=== PATIENT | male | born 1950 | race Caucasian/White ===

== ENCOUNTER 2017-01-11 15:44 | Emergency (ER) | payer MEDICARE ==
[~2017-01-11 15:44] MED LIST: ABREVA2 GM TP; ACCURETIC 20-121 TAB; ACETAMINOPHEN325 M3 PO; ACIDOPHILUS LA1 EAC1 PO; ACYCLOVIR400 MG PO; ADULT LOW DOSE81 M1 PO; ADVIL PM CAPLET1 TAB; ALPRAZOLAM0.5 M2 PO; AMLODIPINE BESYL5 MG PO; AMOXICILLIN500 M1 PO; AMOXICILLIN875 M1 PO; AMOXICILLIN875 MG PO; APRESOLINE25 MG/TAB PO; ASPIR 8181 M1 PO; ASPIR 8181 MG PO; ASPIRIN LOW STR81 MG PO; ASPIRIN325 MG; ATENOLOL25 MG; ATENOLOL50 MG; ATENOLOL50 MG PO; ATIVAN0.5 MG PO; ATORVASTATIN CA80 M1 PO; BABY ASPIRIN81 MG; BACTRIM DS TABL1 TAB PO; BACTROBAN NASAL1 G1; BENICAR HCT 40-1 T; BENICAR HCT 40-1 T PO; BENTYL20 MG PO; BETAPACE AF120 MG PO; BETAPACE AF80 M1 PO; BETAPACE120 MG PO; BETAPACE80 MG PO; CATAPRES0.1 M1 PO; CATAPRES0.1 MG PO; CENTRUM SILVER1 EAC7 PO; CLONIDINE HCL0.1 M2 PO; CLONIDINE HCL0.2 MG PO; CLOPIDOGREL75 M1 PO; COZAAR100 MG PO; CRESTOR; DEPAKOTE ER500 MG PO; FISH OIL; FLEXERIL10 MG PO; FLOMAX0.4 M1 PO; FUROSEMIDE40 MG; FUROSEMIDE40 MG PO; GLIPIZIDE10 M2 PO; GLUCOPHAGE500 M3 PO; HYDRALAZINE HCL25 MG PO; HYDROCODON-ACE1 EA16 PO; HYDROCODONE; IMDUR30 MG PO; KEFLEX500 MG PO; KLOR-CON M1010 MEQ; LAMICTAL25 M1 PO; LASIX40 MG PO; LEVAQUIN750 M1 PO; LIPITOR40 M1 PO; LIPITOR80 M1 PO; LOPRESSOR25 MG/TA6 PO; LORTAB 5-500 T1 EAC1 PO; LORTAB 7.5/5001 TAB PO; MEDROL4 M2 PO; MELOXICAM7.5 MG PO; METFORMIN HCL500 M2 PO; METHADONE PO; METOPROLOL SUC100 M1 PO; METOPROLOL SUCC50 M1 PO; METOPROLOL SUCC50 MG PO; METOPROLOL TART50 MG PO; MIRALAX17 G2 PO; MUCINEX600 M1 PO; MULTI VITAMIN; MULTIVITAMIN1 TAB PO; NEOSPORIN ANT14.2 GM TOP; NEXIUM 24HR20 M1 PO; NEXIUM40 M1 PO; NICOTINE PATCH1 EAC1 TD; NITROGLYCERIN0.4 M2 SL; NITROGLYCERIN0.4 MG SL; NITROSTAT0.4 MG SL; NORCO 10/325 TA1 TAB PO; NORCO 5-325 TA1 EACH PO; NORCO 5/325 TAB1 TAB; NORCO 5/325 TAB1 TAB PO; NORCO 5/3251 TAB PO; NORCO 7.5/325 T1 TAB PO; NORVASC10 M1 PO; NORVASC5 M1 PO; NORVASC5 M2 PO; ORPHENADRINE C100 M1 PO; PAROXETINE HCL20 M1 PO; PAROXETINE HCL20 M2 PO; PAROXETINE HCL20 MG PO; PAROXETINE HCL40 M1 PO; PAROXETINE HCL40 MG PO; PAXIL20 M1 PO; PEN-VEE K500 MG PO; PENICILLIN V P500 M1 PO; PEPCID20 MG PO; PERCOCET 5-3251 EACH PO; PERCOCET 5/3251 TAB PO; PERCOCET 7.5-31 EAC1 PO; PERCOCET 7.5/321 TA2 PO; PERIDEX480 ML MM; PLAVIX75 MG PO; POTASSIUM CHLO10 MEQ PO; PRADAXA150 MG PO; PRAVACHOL20 MG PO; PREDNISONE10 M1 PO; PREDNISONE20 M1 PO; PRILOSEC OTC20 M1 PO; PROAIR HFA8.5 GM IH; PROAIR HFA8.5 GM INH; PROSCAR5 M1 PO; PROTONIX40 M1 PO; PROTONIX40 M2 PO; PROTONIX40 MG PO; SAW PALMETTO CA1 CAP PO; SENOKOT-S TABL1 EACH PO; SENOKOT-S TABLE1 TAB PO; SORINE PO; SORINE120 MG PO; SORINE80 MG PO; SOTALOL HCL80 MG PO; SYMBICORT 80-41 PUFF INH; TOPROL XL100 M1 PO; TOPROL XL50 M1 PO; TOPROL XL50 MG PO; TRAMADOL HCL50 MG PO; TRAZODONE100 MG PO; TRAZODONE50 MG PO; TRICOR145 M1 PO; TYLENOL TA325 MG/TA1 PO; TYLENOL325 M1 PO; TYLENOL325 M2 PO; ULTRAM50 M1 PO; ULTRAM50 MG PO; UNISOM25 MG PO; VIAGRA50 MG; XARELTO20 MG PO; ZOCOR20 M1 PO; ZOFRAN ODT4 MG/UDTAB PO; [UNRECOGNIZED DRUG - OTHER] PO; [UNRECOGNIZED DRUG - OTHER] TP
[2017-01-11] MEDS ORDERED: ULTRAM50 M1 PO (16:42)
[2017-01-11] MEDS ORDERED: CYCLOBENZAPRINE10 M1 PO (16:43)
[2017-04-15] MEDS ORDERED: PENICILLIN V P500 M1 PO (10:57)
[2017-04-15] MEDS ORDERED: NORCO 5/3251 TAB PO ×2 (10:57→11:03)
[2017-05-24] MEDS ORDERED: NORCO 5-325 TA1 EACH PO (15:01)
[2017-05-31] MEDS ORDERED: HYDROCODON-ACE1 EA16 PO (12:47)
== END 2017-01-11 16:48 ==
LOC: EDMED 15:44
DX: M54.5 Low back pain (principal); G89.29 Other chronic pain; I11.9 Hypertensive heart disease without heart failure; Z79.899 Other long term (current) drug therapy; Z79.82 Long term (current) use of aspirin

== ENCOUNTER 2017-02-04 12:05 | Emergency (ER) | payer MEDICARE ==
[~2017-02-04 12:05] MED LIST changes: +CYCLOBENZAPRINE10 M1 PO
[2017-02-04] MEDS ORDERED: ULTRAM50 M1 PO (12:31)
[2017-02-04] MEDS ORDERED: PREDNISONE10 M1 PO (12:32)
[2017-02-04] MEDS ORDERED: VIBRAMYCIN100 M1 PO (12:41)
[2017-02-04] MEDS ORDERED: NORCO 5-325 TA1 EACH PO (12:55)
[2017-04-15] MEDS ORDERED: PENICILLIN V P500 M1 PO (10:57)
[2017-04-15] MEDS ORDERED: NORCO 5/3251 TAB PO ×2 (10:57→11:03)
[2017-05-24] MEDS ORDERED: NORCO 5-325 TA1 EACH PO (15:01)
[2017-05-31] MEDS ORDERED: HYDROCODON-ACE1 EA16 PO (12:47)
== END 2017-02-04 13:10 ==
LOC: EDMED 12:05
DX: M54.5 Low back pain (principal); G89.29 Other chronic pain; I11.0 Hypertensive heart disease with heart failure; I50.9 Heart failure, unspecified; F17.210 Nicotine dependence, cigarettes, uncomplicated

== ENCOUNTER 2017-03-08 17:09 | Emergency (ER) | payer MEDICARE ==
[~2017-03-08 17:09] MED LIST changes: +VIBRAMYCIN100 M1 PO
[2017-03-08 17:50] LABS: BASO % 0.3 % (0-2); EOS % 2.7 % (0-7); EOSINOPHIL ABSOLUTE COUNT 0.2 tho/cmm (0.0-0.7); HCT-HEMATOCRIT 39.4 % (36.0-53.5); HGB-HEMOGLOBIN 14.1 gm/dl (13.5-17.0); IMMATURE GRANULOCYTES ABSOLUTE 0.03 tho/cmm (0-0.03); IMMATURE GRANULOCYTES PERCENT 0.4 % (0-0.3); LYMPH ABSOLUTE COUNT 2.6 tho/cmm (0.8-4.5); MCH (MEAN CORPUSCULAR HGB) 33.5 pg (28.0-32.0); MCHC MEAN CORPUSCULAR HGB CONC 35.8 % (32.0-36.0); MCV (MEAN CELL VOLUME) 93.6 fl (82.0-96.0); MEAN PLATELET VOLUME 10.5 cmc (9.4-12.4); MONO % 7.6 % (0-12); MONOCYTE ABSOLUTE COUNT 0.5 tho/cmm (0.0-1.2); NEUTROPHIL ABSOLUTE COUNT 3.4 tho/cmm (1.6-8.0); NEUTROPHIL-AUTOMATED 3.4 tho/cmm (1.6-8.0); PLATELET COUNT 144 tho/cmm (150-450); RED BLOOD COUNT 4.21 mil/cmm (4.40-5.70); RED CELL DISTRIBUTION WIDTH 13.1 % (12.4-16.4); WHITE BLOOD COUNT 6.7 tho/cmm (4.0-10.0)
[2017-03-08 17:55] LABS: PROTHROMBIN TIME 11.4 SECONDS (9.0-13.6)
[2017-03-08 18:02] LABS: ANION GAP 14 mmol/L (0-20); BLOOD UREA NITROGEN 21 mg/dl (6-24); CALCIUM 8.9 mg/dl (8.5-10.5); CARBON DIOXIDE-VENOUS 26 mmol/L (22-32); CHLORIDE 104 mmol/l (96-110); CREATININE 1.66 mg/dl (0.60-1.30); GLUCOSE 182 mg/dL (70-110); POTASSIUM 4.7 mmol/L (3.7-5.1); SODIUM 139 mmol/L (135-145); eGFR VALUE FOR BLACK 49 mL/Min
[2017-03-08] MEDS ORDERED: OXYCODONE-ACET1 EAC3 PO ×2 (18:36)
[2017-04-15] MEDS ORDERED: NORCO 5/3251 TAB PO ×2 (10:57→11:03)
[2017-04-15] MEDS ORDERED: PENICILLIN V P500 M1 PO (10:57)
[2017-05-24] MEDS ORDERED: NORCO 5-325 TA1 EACH PO (15:01)
[2017-05-31] MEDS ORDERED: HYDROCODON-ACE1 EA16 PO (12:47)
== END 2017-03-08 18:56 ==
LOC: EDMED 17:09
PROVIDERS: Emergency Medicine
DX: I97.630 Postprocedural hematoma of a circulatory system organ or structure following a cardiac catheterization (principal); I25.10 Atherosclerotic heart disease of native coronary artery without angina pectoris; I10 Essential (primary) hypertension; Z87.891 Personal history of nicotine dependence; Z95.5 Presence of coronary angioplasty implant and graft; Z95.1 Presence of aortocoronary bypass graft; Z79.01 Long term (current) use of anticoagulants; Z79.82 Long term (current) use of aspirin

== ENCOUNTER 2017-05-30 13:01 | Emergency (ER) | payer MEDICARE ==
[~2017-05-30] VITALS: Ht 182.9 cm; Wt 95.0 kg
[~2017-05-30 13:01] MED LIST changes: +OXYCODONE-ACET1 EAC3 PO
[2017-05-31] MEDS ORDERED: HYDROCODON-ACE1 EA16 PO (12:47)
== END 2017-05-30 13:37 ==
LOC: EDMED 13:01
DX: Z76.0 Encounter for issue of repeat prescription (principal); I48.91 Unspecified atrial fibrillation; I51.9 Heart disease, unspecified; Z98.890 Other specified postprocedural states; Z87.891 Personal history of nicotine dependence

== ENCOUNTER 2017-06-02 05:36 | Day surgery (SDC) | payer MEDICARE ==
[~2017-06-02] VITALS: Ht 182.9 cm; Wt 98.8 kg
== END 2017-06-02 12:00 ==
LOC: SHSB 05:36 → SRG 05:36 → ORW 07:52 → PACU 08:21 → SHSB 09:25 → SRG 12:00
PROC: 0WUF0JZ Supplement Abdominal Wall with Synthetic Substitute, Open Approach (ICD-10-PCS; principal; 2017-06-02)
DX: K43.2 Incisional hernia without obstruction or gangrene (principal); I11.0 Hypertensive heart disease with heart failure; I50.9 Heart failure, unspecified; E78.00 Pure hypercholesterolemia, unspecified; M19.90 Unspecified osteoarthritis, unspecified site; E11.9 Type 2 diabetes mellitus without complications; F41.9 Anxiety disorder, unspecified; F32.9 Major depressive disorder, single episode, unspecified; K21.9 Gastro-esophageal reflux disease without esophagitis; N40.0 Benign prostatic hyperplasia without lower urinary tract symptoms; G47.30 Sleep apnea, unspecified; J44.9 Chronic obstructive pulmonary disease, unspecified; Z79.02 Long term (current) use of antithrombotics/antiplatelets; Z79.899 Other long term (current) drug therapy; Z87.891 Personal history of nicotine dependence
CPT/HCPCS: C1781; J0690; J1170